=== PATIENT | female | born 1960 | race Two or more races ===

== ENCOUNTER 2021-12-23 11:10 | Emergency (ER) | payer OTHER ==
[~2021-12-23] VITALS: Ht 147.3 cm; Wt 63.5 kg
[2021-12-23] MEDS ORDERED: ARIP15TA3 PO (11:18)
[2021-12-23] MEDS ORDERED: SERT100T12 PO (11:18)
[2021-12-23] MEDS ORDERED: ATEN50TA PO (11:18)
[2021-12-23] MEDS ORDERED: ATOR20TA PO (11:18)
--- NOTE | 2021-12-23 11:25 | NUR ---
BIBS C/O lac on the head occital area s/p tripped and fall hit head on the metal cabinet no loc. AMBULATORY, PLACED ON BED AAOX4, 1INC. CRACKED-LACERATION AT THE HEAD NOTED NO ACTIVE BLEEDING.
[2021-12-23] MEDS ORDERED: LIDOCAINE 1% INJ 50 ML MDV IJ ONE ×2 (11:56→12:00)
--- NOTE | 2021-12-23 12:00 | NUR ---
AT BED SIDE
--- NOTE | 2021-12-23 12:20 | NUR ---
HEAD LACERATION AREA STAPLED BY DR BELLA
[2021-12-23] MEDS ORDERED: BACI/NEOM/POLY B OINT PKT 1 UDPKT PACKET TP ONE (12:30)
[2021-12-23] MEDS ORDERED: TDAP [DIPH/PERTUSSIS/TET] 0.5 ML VIAL IM ONE ×2 (12:32→13:00)
--- NOTE | 2021-12-23 12:34 | NUR ---
Patient discharged to home in stable condition. Written and verbal after care instructions given. Patient verbalizes understanding of instruction.
[2021-12-23 12:49] VITALS: BP 145/98
== END 2021-12-23 12:35 | disposition home or self-care (01) ==
LOC: ER 11:30
DX: S01.01XA Laceration without foreign body of scalp, initial encounter (principal); I10 Essential (primary) hypertension; E78.5 Hyperlipidemia, unspecified; F32.A Depression, unspecified; W01.0XXA Fall on same level from slipping, tripping and stumbling without subsequent striking against object, initial encounter; Y93.89 Activity, other specified; Y92.89 Other specified places as the place of occurrence of the external cause; Y99.8 Other external cause status
CPT/HCPCS: 12002; 90471; 90715; 99283; A6403; J3490

== ENCOUNTER 2022-01-04 12:29 | Emergency (ER) | payer OTHER ==
[~2022-01-04] VITALS: Ht 147.3 cm; Wt 63.5 kg
[~2022-01-04 12:29] MED LIST: ARIP15TA3 PO; ATEN50TA PO; ATOR20TA PO; SERT100T12 PO
[2022-01-04 12:36] VITALS: BP 121/81
--- NOTE | 2022-01-04 12:57 | NUR ---
Patient discharged to home in stable condition. Written and verbal after care instructions given. Patient verbalizes understanding of instruction.
== END 2022-01-04 12:57 | disposition home or self-care (01) ==
LOC: ER 12:39
DX: Z48.02 Encounter for removal of sutures (principal); I10 Essential (primary) hypertension; E78.5 Hyperlipidemia, unspecified; F32.A Depression, unspecified; Z79.899 Other long term (current) drug therapy